=== PATIENT | male | born 1980 | race Caucasian/White ===

== ENCOUNTER 2022-01-12 20:00 | Emergency (ER) | payer OTHER ==
[2022-01-12] MEDS ORDERED: MOTRIN600 MG PO (22:37)
[2022-01-12] MEDS ORDERED: CYCLOBENZAPRINE10 MG PO (22:37)
== END 2022-01-12 22:45 | disposition home or self-care (01) ==
LOC: FER 20:00
DX: S16.1XXA Strain of muscle, fascia and tendon at neck level, initial encounter (principal); Z88.0 Allergy status to penicillin; V43.52XA Car driver injured in collision with other type car in traffic accident, initial encounter
CPT/HCPCS: 99283